=== PATIENT | male | born 1955 | race Caucasian/White ===

== ENCOUNTER 2021-04-01 14:04 | Observation (INO) ==
[2021-04-01 14:13] VITALS: BMI 28.2
--- NOTE | 2021-04-01 14:17 | DR.GENAD ---
HPI Time Seen Time Seen by Provider: 04/01/21 14:16 PCP Primary Care Physician: Complaint/Symptoms Chief Complaint:: PT ARRIVED PER [facility] FROM [facility]. EMS STATES PT'S SOCAIL WORKER CALLED TO HAVE PT TRANSPORTED TO ER HERE TO BE CHECKED OUT. PT'S IS ADMITTED TO HOSPITAL IN [place] & PT IS UNABLE TO TAKE CARE OF SELF. PT VOICES NO COMPLAINTS @ THIS TIME. COVID-19 Coronavirus risk:travel/contact w/high risk person: No Has patient experienced Coronavirus symptoms: No Source History Provided: Patient Mode of Arrival Mode of Arrival: EMS Timing Onset of Chief Complaint: 04/01/21 Came on: Suddenly Duration Duration: Constant Duration: Days PMH PMH Past Medical History: Yes Past Medical History: CVA and Diabetes Past Surgical History: Yes Surgical History: Other Family History History of Family Medical Conditions: Yes Family Medical History: Diabetes Mellitus and Cancer Travel Risk Coronavirus risk:travel/contact w/high risk person: No Has patient experienced Coronavirus symptoms: No Infectious screening Have you traveled outside the country in the last 6 months?: No Isolation: Standard ROS Review of Systems Constitutional: No Symptoms Reported and See HPI Eyes: No Symptoms Reported and See HPI ENTM: No Symptoms Reported and See HPI Respiratoy: No Symptoms Reported and See HPI Cardiovascular: No Symptoms Reported and See HPI Gastrointestinal/Abdominal: No Symptoms Reported and See HPI Genitourinary: No Symptoms Reported and See HPI Neurological: No Symptoms Reported and See HPI Musculoskeletal: No Symptoms Reported and See HPI Integumentary: No Symptoms Reported and See HPI Hematologic/Lymphatic: No Symptoms Reported and See HPI Endocrine: No Symptoms Reported and See HPI Psychiatric: No Symptoms Reported and See HPI All Other Systems: Reviewed and Negative PE Vital Signs Vitals: Temperature 98.2 F Pulse Rate [Left Radial] 75 Pulse Rate 76 Respiratory Rate 20 Blood Pressure [Left Arm] 167/81 Blood Pressure 135/90 O2 Sat by Pulse Oximetry 98 General Limitations: No Limitations General Appearance: Alert and In No Apparent Distress Head Head Exam: Normal Inspection Eyes Eye exam: Normal Appearance ENT ENT Exam: Normal Exam External Ear Exam: Normal External Inspection TM/Canal Exam: Bilateral: Normal Nose Exam: Normal Nose Exam Mouth Exam: Normal Inspection Throat Exam: Normal Inspection Neck Neck Exam: Normal Inspection Chest Chest Inspection: Normal Inspection Respiratory Respiratory Exam: Normal Lung Sounds Bilat Respiratory Exam: Bilateral: Clear to Auscultation Cardiovascular Cardiovascular Exam: Regular Rate and Normal Rhythm Abdominal Exam Abdominal Exam: Normal Inspection, Normal Bowel Sounds and Soft Extremities Extremities Exam: Normal Inspection Back Back Exam: Normal Inspection Neurologic Neurological Exam: Alert and Oriented X3 Psychiatric Psychiatric Exam: Normal Affect and Normal Mood Skin Skin Exam: Warm, Dry, Intact and Normal Color ROR Labs Reviewed Result Diagrams: 04/01/21 16:18 04/01/21 16:18 Laboratory: WBC 8.3 X10^3/uL (3.6-10.0) 04/01/21 16:18 RBC 4.55 X10^6/uL (4.7-6.0) L 04/01/21 16:18 Hgb 12.9 g/dL (13.5-18.0) L 04/01/21 16:18 Hct 37.9 % (42.0-54.0) L 04/01/21 16:18 MCV 83.3 fL (80.0-100.0) 04/01/21 16:18 MCH 28.3 pg (27.0-34.0) 04/01/21 16:18 MCHC 34.0 g/dL (33.0-35.0) 04/01/21 16:18 RDW 17.4 % (11.6-16.5) H 04/01/21 16:18 Plt Count 282 X10^3/uL (150.0-450.0) 04/01/21 16:18 MPV 7.9 fL (7.4-11.0) 04/01/21 16:18 Neut % (Auto) 68.7 % (42.0-75.0) 04/01/21 16:18 Lymph % (Auto) 17.9 % (21.0-51.0) L 04/01/21 16:18 [place] % (Auto) 9.5 % (0.0-13.0) 04/01/21 16:18 Eos % (Auto) 3.3 % (0.9-2.9) H 04/01/21 16:18 Baso % (Auto) 0.6 % (0.2-1.0) 04/01/21 16:18 Neut # (Auto) 5.7 x10^3/uL (2.2-4.8) H 04/01/21 16:18 Lymph # (Auto) 1.5 X10^3/uL (1.3-2.9) 04/01/21 16:18 [place]od # (Auto) 0.8 x10^3/uL (0.3-0.8) 04/01/21 16:18 Eos # (Auto) 0.3 x10^3/uL (0.0-0.2) H 04/01/21 16:18 Baso # (Auto) 0.1 X10^3/uL (0.0-0.1) 04/01/21 16:18 Absolute Nucleated RBC 0.0 /100WBC 04/01/21 16:18 Sodium 134 mmol/L (136-145) L 04/01/21 16:18 Corrected Sodium 137 mmol/L (136-145) 04/01/21 16:18 Potassium 4.3 mmol/L (3.5-5.1) 04/01/21 16:18 Chloride 99 mmol/L (98-107) 04/01/21 16:18 Carbon Dioxide 27.9 mmol/L (21-32) 04/01/21 16:18 BUN 16 mg/dL (7-18) 04/01/21 16:18 Creatinine 1.01 mg/dL (0.70-1.30) 04/01/21 16:18 Est GFR (MDRD) Af Amer > 60 (>60) 04/01/21 16:18 Est GFR (MDRD) Non-Af > 60 (>60) 04/01/21 16:18 Glucose 235 mg/dL (65-99) H 04/01/21 16:18 Calcium 9.4 mg/dL (8.5-10.1) 04/01/21 16:18 Corrected Calcium 10.1 mg/dL (8.5-10.1) 04/01/21 16:18 Total Bilirubin 0.70 mg/dL (0.2-1.0) 04/01/21 16:18 AST 15 Units/L (15-37) 04/01/21 16:18 ALT 11 Units/L (12-78) L 04/01/21 16:18 Alkaline Phosphatase 113 Units/L (46-116) 04/01/21 16:18 Total Protein 7.5 g/dL (6.4-8.2) 04/01/21 16:18 Albumin 3.1 g/dL (3.4-5.0) L 04/01/21 16:18 Globulin 4.4 g/dL (2.5-4.5) 04/01/21 16:18 Albumin/Globulin Ratio 0.7 Ratio (1.1-2.1) L 04/01/21 16:18 Specimen Type Catherized urine 04/01/21 19:23 Urine Color Yellow (YELLOW) 04/01/21 19:23 Urine Appearance Clear (CLEAR) 04/01/21 19: Urine pH 5.0 (5.0 - 8.0) 04/01/21 19: Ur Specific [place] 1.020 (1.000-1.030) 04/01/21 19: Urine Protein 2+ (NEGATIVE) 04/01/21 19: Urine Glucose (UA) 3+ (NEGATIVE) 04/01/21 19: Urine Ketones 2+ (NEGATIVE) 04/01/21 19: Urine Occult Blood 2+ (NEGATIVE) 04/01/21 19:23 Urine Nitrite Negative (NEGATIVE) 04/01/21 19:23 Urine Bilirubin Negative (NEGATIVE) 04/01/21 19:23 Urine Urobilinogen Normal (NORMAL) 04/01/21 19:23 Ur Leukocyte Esterase Negative (NEGATIVE) 04/01/21 19:23 Urine RBC 5-10 /HPF (0-3) A 04/01/21 19:23 Urine WBC 3-5 /HPF (0-5) 04/01/21 19:23 Ur Squamous Epith Cells Rare /HPF (NEGATIVE) 04/01/21 19:23 Urine Bacteria Trace /HPF (NEGATIVE) 04/01/21 19:23 Ur Culture Indicated? No/not indicated 04/01/21 19:23 SARS-CoV-2 (PCR) Negative (NEGATIVE) 04/01/21 19:23 Influenza Type A (PCR) Negative (NEGATIVE) 04/01/21 19:23 Influenza Type B (PCR) Negative (NEGATIVE) 04/01/21 19:23 RSV (PCR) Negative (NEGATIVE) 04/01/21 19:23 Opioid Opioid Risk Tool Age (David box if 16-45): No History of Preadolescent Sexual Abuse: No Total: 0 Total Score Risk Category: Low Risk Copyright: Som LOZA predicting aberrant behaviors
[2021-04-01 16:32] LABS: BASOPHILS # (AUTO) 0.1 X10^3/uL (0.0-0.1); BASOPHILS % (AUTO) 0.6 % (0.2-1.0); EOSINOPHILS # (AUTO) 0.3 x10^3/uL (0.0-0.2); EOSINOPHILS % (AUTO) 3.3 % (0.9-2.9); HEMATOCRIT 37.9 % (42.0-54.0); HEMOGLOBIN 12.9 g/dL (13.5-18.0); LYMPHOCYTES # (AUTO) 1.5 X10^3/uL (1.3-2.9); LYMPHOCYTES % (AUTO) 17.9 % (21.0-51.0); MEAN CORPUSCULAR HEMOGLOBIN 28.3 pg (27.0-34.0); MEAN CORPUSCULAR VOLUME 83.3 fL (80.0-100.0); MEAN PLATELET VOLUME 7.9 fL (7.4-11.0); MONOCYTES # (AUTO) 0.8 x10^3/uL (0.3-0.8); MONOCYTES % (AUTO) 9.5 % (0.0-13.0); NEUTROPHILS # (AUTO) 5.7 x10^3/uL (2.2-4.8); NEUTROPHILS % (AUTO) 68.7 % (42.0-75.0); PLATELET COUNT 282 X10^3/uL (150.0-450.0); RED BLOOD COUNT 4.55 X10^6/uL (4.7-6.0); RED CELL DISTRIBUTION WIDTH 17.4 % (11.6-16.5); WHITE BLOOD COUNT 8.3 X10^3/uL (3.6-10.0)
[2021-04-01 16:45] LABS: ALANINE AMINOTRANSFERASE 11 Units/L (12-78); ALBUMIN 3.1 g/dL (3.4-5.0); ALKALINE PHOSPHATASE 113 Units/L (46-116); ASPARTATE AMINO TRANSFERASE 15 Units/L (15-37); BLOOD UREA NITROGEN 16 mg/dL (7-18); CALCIUM 9.4 mg/dL (8.5-10.1); CARBON DIOXIDE 27.9 mmol/L (21-32); CHLORIDE 99 mmol/L (98-107); COR CA(FOR HYPOALB) 10.1 mg/dL (8.5-10.1); COR NA(FOR HYPERGLY) 137 mmol/L (136-145); CREATININE 1.01 mg/dL (0.70-1.30); SODIUM 134 mmol/L (136-145); TOTAL PROTEIN 7.5 g/dL (6.4-8.2); eGFR NON BLACK RACES > 60 (>60)
[2021-04-01 20:03] LABS: BILIRUBIN,URINE NEGATIVE (NEGATIVE); BLOOD/HEMOGLOBIN,URINE 2+ (NEGATIVE); GLUCOSE, URINE 3+ (NEGATIVE); KETONES,URINE 2+ (NEGATIVE); LEUKOCYTE ESTERASE ,URINE NEGATIVE (NEGATIVE); NITRITES,URINE NEGATIVE (NEGATIVE); PROTEIN,URINE 2+ (NEGATIVE); UROBILINOGEN,URINE NORMAL (NORMAL)
[2021-04-01 20:14] LABS: APPEARANCE,URINE CLEAR (CLEAR); COLOR,URINE YELLOW (YELLOW)
[2021-04-01 20:15] LABS: BACTERIA,URINE TRACE /HPF (NEGATIVE); SQUAMOUS EPITHELIAL CELL,UR RARE /HPF (NEGATIVE)
[2021-04-02] MEDS ORDERED: VISTARIL PO PRN (01:53)
[2021-04-02] MEDS ORDERED: NS 1000 ML 1,000 ML ONE (02:08)
[2021-04-02] MEDS: NS 1000 ML 1,000 ML IV SCH ×2 (02:25→15:31)
[2021-04-02] MEDS ORDERED: CATAPRES TAB 0.1 MG PO ONE (02:33)
[2021-04-02] MEDS: HumuLIN R SC PRN ×3 (05:52→17:35)
[2021-04-02 06:14] LABS: BASOPHILS % (AUTO) 0.6 % (0.2-1.0); EOSINOPHILS # (AUTO) 0.2 x10^3/uL (0.0-0.2); EOSINOPHILS % (AUTO) 3.6 % (0.9-2.9); HEMATOCRIT 36.4 % (42.0-54.0); HEMOGLOBIN 12.5 g/dL (13.5-18.0); LYMPHOCYTES # (AUTO) 1.4 X10^3/uL (1.3-2.9); LYMPHOCYTES % (AUTO) 20.3 % (21.0-51.0); MEAN CORPUSCULAR HEMOGLOBIN 28.2 pg (27.0-34.0); MEAN CORPUSCULAR HGB CONC 34.2 g/dL (33.0-35.0); MEAN CORPUSCULAR VOLUME 82.4 fL (80.0-100.0); MEAN PLATELET VOLUME 8.5 fL (7.4-11.0); MONOCYTES # (AUTO) 0.7 x10^3/uL (0.3-0.8); MONOCYTES % (AUTO) 10.8 % (0.0-13.0); NEUTROPHILS # (AUTO) 4.4 x10^3/uL (2.2-4.8); NEUTROPHILS % (AUTO) 64.7 % (42.0-75.0); PLATELET COUNT 304 X10^3/uL (150.0-450.0); RED BLOOD COUNT 4.42 X10^6/uL (4.7-6.0); RED CELL DISTRIBUTION WIDTH 17.1 % (11.6-16.5); WHITE BLOOD COUNT 6.8 X10^3/uL (3.6-10.0)
[2021-04-02 06:31] LABS: ALANINE AMINOTRANSFERASE 12 Units/L (12-78); ALKALINE PHOSPHATASE 117 Units/L (46-116); ASPARTATE AMINO TRANSFERASE 15 Units/L (15-37); BLOOD UREA NITROGEN 12 mg/dL (7-18); CALCIUM 9.3 mg/dL (8.5-10.1); CARBON DIOXIDE 26.5 mmol/L (21-32); CHLORIDE 98 mmol/L (98-107); COR CA(FOR HYPOALB) 10.1 mg/dL (8.5-10.1); COR NA(FOR HYPERGLY) 140 mmol/L (136-145); SODIUM 136 mmol/L (136-145); TOTAL PROTEIN 7.3 g/dL (6.4-8.2); eGFR NON BLACK RACES > 60 (>60)
[2021-04-02] MEDS: CATAPRES TAB 0.1 MG PO SCH ×2 (09:28→21:45)
--- NOTE | 2021-04-02 09:46 | DR.H&P ---
H&P History & Physical for Day of: H&P Date: 04/02/21 Chief Complaint Chief Complaint: Dehydration Generalized weakness Allergies Allergies Allergy/AdvReac Type Severity Reaction Status Date / Time No Known Drug Allergies Allergy Verified 04/01/21 14:13 History of Present Illness History of Present Illness: Pt is a 65 year old male past medical history of CVA(Right hemiparesis), Legally blind, HTN, DMT2, Skin cancer, presenting after EMS was called by [facility]. Appears patient's who is his primary legal financial specialist is at a hospital, possibly [place], with a heart condition. Pt has been alone for the past 3-4 days without any oral intake. Labs/imaging: Wbc 6.8, Hgb 12.5, Plt 304, Na 136, K 3.8, Creatinine 0.90, Glucose 246, UA negative, COVID-19 negative. Will admit patient for dehydration. Start on diabetic diet, IVF NS@80ml/h, SSI, Clonidine 0.1mg BID, Hydroxyzine 25mg qhs prn, Lovenox 40mg for DVT ppx. Will get medication list from pharmacy and restart home medications when available. Discussed with nurse outreach case manager to determine patient's home situation and status of . Will continue to monitor and follow up labs in the morning. Past Medical History Past Medical History: CVA, Diabetes and Hypertension Past Surgical History Surgical History: Other Family History Family Medical History: Diabetes Mellitus and Cancer Social History Does patient currently use any type of tobacco product: No Have you used tobacco products in the last 12 months: No Type of Tobacco Use: None Alcohol Use: None Drug Use: None Medications Home Medications: No Known Drug Allergies Allergy (Verified 04/01/21 14:13) Labs Result Diagrams: 04/02/21 05:25 04/02/21 05:25 Labs: Laboratory WBC 6.8 X10^3/uL (3.6-10.0) 04/02/21 05:25 RBC 4.42 X10^6/uL (4.7-6.0) L 04/02/21 05:25 Hgb 12.5 g/dL (13.5-18.0) L 04/02/21 05:25 Hct 36.4 % (42.0-54.0) L 04/02/21 05:25 MCV 82.4 fL (80.0-100.0) 04/02/21 05:25 MCH 28.2 pg (27.0-34.0) 04/02/21 05:25 MCHC 34.2 g/dL (33.0-35.0) 04/02/21 05:25 RDW 17.1 % (11.6-16.5) H 04/02/21 05:25 Plt Count 304 X10^3/uL (150.0-450.0) 04/02/21 05:25 MPV 8.5 fL (7.4-11.0) 04/02/21 05:25 Neut % (Auto) 64.7 % (42.0-75.0) 04/02/21 05:25 Lymph % (Auto) 20.3 % (21.0-51.0) L 04/02/21 05:25 [place] % (Auto) 10.8 % (0.0-13.0) 04/02/21 05:25 Eos % (Auto) 3.6 % (0.9-2.9) H 04/02/21 05:25 Baso % (Auto) 0.6 % (0.2-1.0) 04/02/21 05:25 Neut # (Auto) 4.4 x10^3/uL (2.2-4.8) 04/02/21 05:25 Lymph # (Auto) 1.4 X10^3/uL (1.3-2.9) 04/02/21 05:25 [place] # (Auto) 0.7 x10^3/uL (0.3-0.8) 04/02/21 05:25 Eos # (Auto) 0.2 x10^3/uL (0.0-0.2) 04/02/21 05:25 Baso # (Auto) 0.0 X10^3/uL (0.0-0.1) 04/02/21 05:25 Absolute Nucleated RBC 0.0 /100WBC 04/02/21 05:25 Sodium 136 mmol/L (136-145) 04/02/21 05:25 Corrected Sodium 140 mmol/L (136-145) 04/02/21 05:25 Potassium 3.8 mmol/L (3.5-5.1) 04/02/21 05:25 Chloride 98 mmol/L (98-107) 04/02/21 05:25 Carbon Dioxide 26.5 mmol/L (21-32) 04/02/21 05:25 BUN 12 mg/dL (7-18) 04/02/21 05:25 Creatinine 0.90 mg/dL (0.70-1.30) 04/02/21 05:25 Est GFR (MDRD) Af Amer > 60 (>60) 04/02/21 05:25 Est GFR (MDRD) Non-Af > 60 (>60) 04/02/21 05:25 Glucose 246 mg/dL (65-99) H 04/02/21 05:25 POC Glucose (mg/dL) 233 mg/dL (65-99) H 04/02/21 05:09 Calcium 9.3 mg/dL (8.5-10.1) 04/02/21 05:25 Corrected Calcium 10.1 mg/dL (8.5-10.1) 04/02/21 05:25 Total Bilirubin 0.70 mg/dL (0.2-1.0) 04/02/21 05:25 AST 15 Units/L (15-37) 04/02/21 05:25 ALT 12 Units/L (12-78) 04/02/21 05:25 Alkaline Phosphatase 117 Units/L (46-116) H 04/02/21 05:25 Total Protein 7.3 g/dL (6.4-8.2) 04/02/21 05:25 Albumin 3.0 g/dL (3.4-5.0) L 04/02/21 05:25 Globulin 4.3 g/dL (2.5-4.5) 04/02/21 05:25 Albumin/Globulin Ratio 0.7 Ratio (1.1-2.1) L 04/02/21 05:25 Specimen Type Catherized urine 04/01/21 19:23 Urine Color Yellow (YELLOW) 04/01/21 19:23 Urine Appearance Clear (CLEAR) 04/01/21 19:23 Urine pH 5.0 (5.0 - 8.0) 04/01/21 19:23 Ur Specific [place] 1.020 (1.000-1.030) 04/01/21 19:23 Urine Protein 2+ (NEGATIVE) 04/01/21 19:23 Urine Glucose (UA) 3+ (NEGATIVE) 04/01/21 19:23 Urine Ketones 2+ (NEGATIVE) 04/01/21 19:23 Urine Occult Blood 2+ (NEGATIVE) 04/01/21 19:23 Urine Nitrite Negative (NEGATIVE) 04/01/21 19:23 Urine Bilirubin Negative (NEGATIVE) 04/01/21 19:23 Urine Urobilinogen Normal (NORMAL) 04/01/21 19:23 Ur Leukocyte Esterase Negative (NEGATIVE) 04/01/21 19:23 Urine RBC 5-10 /HPF (0-3) A 04/01/21 19:23 Urine WBC 3-5 /HPF (0-5) 04/01/21 19:23 Ur Squamous Epith Cells Rare /HPF (NEGATIVE) 04/01/21 19:23 Urine Bacteria Trace /HPF (NEGATIVE) 04/01/21 19:23 Ur Culture Indicated? No/not indicated 04/01/21 19:23 SARS-CoV-2 (PCR) Negative (NEGATIVE) 04/01/21 19:23 Influenza Type A (PCR) Negative (NEGATIVE) 04/01/21 19:23 Influenza Type B (PCR) Negative (NEGATIVE) 04/01/21 19:23 RSV (PCR) Negative (NEGATIVE) 04/01/21 19:23 Review of Systems Constitutional: Weakness; denies Fever and Chills Eyes: Other (Blind) ENT: No Symptoms Reported Respiratory: No Symptoms Reported Cardiovascular: No Symptoms Reported Gastrointestinal: No Symptoms Reported Genitourinary: No Symptoms Reported Musculoskeletal: No Symptoms Reported Skin: Other (Right amish area large circumferencial area of cancer treatment) Neurological: Weakness (RUE/RLE ) Physical Exam Vital Signs: Temperature 97.1 F Pulse Rate [Left Radial] 71 Pulse Rate 76 Respiratory Rate 18 Blood Pressure [Left Arm] 149/90 Blood Pressure 135/90 O2 Sat by Pulse Oximetry 98 Oriented: Normal Eyes: Other (Blind) Ear: Normal Nose: Normal Throat: Normal Respiratory: Clear Throughout Cardiovascular: Normal : Normal Auscultation: Bowel Sounds: Normal Palpation: Normal Tenderness: Normal Skin: Decreased Turgur and Other (right amish skin treatment area) Musculoskeletal: Motor Deficit (Right hemiparesis(RUE/RLE)) Psychiatric: Normal Mood Description: Calm and Appropriate Affect: Normal Speech Pattern: Clear and Appropriate Assessment/Plan (1) Dehydration: Status: Acute (2) Generalized weakness: Status: Acute Review H&P Reviewed: Yes Patient was examined?: Yes
[2021-04-03] MEDS: NS 1000 ML 1,000 ML IV SCH ×2 (03:57→16:45)
[2021-04-03 06:18] LABS: BLOOD UREA NITROGEN 9 mg/dL (7-18); CALCIUM 9.1 mg/dL (8.5-10.1); CARBON DIOXIDE 27.7 mmol/L (21-32); CHLORIDE 101 mmol/L (98-107); COR NA(FOR HYPERGLY) 141 mmol/L (136-145); CREATININE 0.91 mg/dL (0.70-1.30); SODIUM 138 mmol/L (136-145); eGFR NON BLACK RACES > 60 (>60)
[2021-04-03 06:29] LABS: BASOPHILS # (AUTO) 0.1 X10^3/uL (0.0-0.1); BASOPHILS % (AUTO) 0.9 % (0.2-1.0); EOSINOPHILS # (AUTO) 0.2 x10^3/uL (0.0-0.2); EOSINOPHILS % (AUTO) 3.6 % (0.9-2.9); HEMATOCRIT 34.3 % (42.0-54.0); HEMOGLOBIN 11.9 g/dL (13.5-18.0); LYMPHOCYTES # (AUTO) 1.3 X10^3/uL (1.3-2.9); LYMPHOCYTES % (AUTO) 21.7 % (21.0-51.0); MEAN CORPUSCULAR HEMOGLOBIN 28.6 pg (27.0-34.0); MEAN CORPUSCULAR HGB CONC 34.7 g/dL (33.0-35.0); MEAN CORPUSCULAR VOLUME 82.5 fL (80.0-100.0); MEAN PLATELET VOLUME 8.5 fL (7.4-11.0); MONOCYTES # (AUTO) 0.6 x10^3/uL (0.3-0.8); MONOCYTES % (AUTO) 10.4 % (0.0-13.0); NEUTROPHILS # (AUTO) 3.9 x10^3/uL (2.2-4.8); NEUTROPHILS % (AUTO) 63.4 % (42.0-75.0); PLATELET COUNT 268 X10^3/uL (150.0-450.0); RED BLOOD COUNT 4.16 X10^6/uL (4.7-6.0); RED CELL DISTRIBUTION WIDTH 17.1 % (11.6-16.5); WHITE BLOOD COUNT 6.1 X10^3/uL (3.6-10.0)
[2021-04-03] MEDS: HumuLIN R SC PRN ×4 (06:30→21:28)
[2021-04-03] MEDS: CATAPRES TAB 0.1 MG PO SCH ×2 (10:11→21:40)
[2021-04-03] MEDS: LOVENOX INJ 40 MG SYR SC SCH (10:11)
--- NOTE | 2021-04-03 11:33 | PCM.PROG ---
Progress Note Progress Note for Day of Date of Exam: 04/03/21 Subjective Subjective: Pt is a 65 year old male past medical history of CVA(Right hemiparesis), Legally blind, HTN, DMT2, Skin cancer, admitted for dehydration and generalized weakness. This morning patient reports feeling a little better, he still remains weak. Labs/imaging: Wbc 6.1, Hgb 11.9, Plt 268, Na 138, K 3.4, Creatinine 0.91, Glucose 212. CXR: Mild cardiomegaly without congestive heart failure. Lungs hypoinflated but clear. Pt is currently on diabetic diet(pureed), IVF NS@80ml/h, SSI, Clonidine 0.1mg BID, Hydroxyzine 25mg qhs prn, Lovenox 40mg for DVT ppx. Will decrease IVF to KVO. PT recommends SNF for rehab. Discussed with business case analyst to arrange disposition. Otherwise continue with current mony tment plan. Will continue to monitor and follow up labs in the morning. Past Medical Family Social History Past Med/Fam/Surg Hx: No changes since H&P Allergies: Allergies No Known Drug Allergies Allergy (Verified 04/01/21 14:13) Review of Systems ROS: No change since H&P Vital Signs and I&O's Vital Signs: Temperature 98.2 F Pulse Rate [Left Radial] 75 Pulse Rate 76 Respiratory Rate 18 Blood Pressure [Left Arm] 164/94 Blood Pressure 135/90 O2 Sat by Pulse Oximetry 93 Intake and Output: Intake & Output 03/31/21 04/01/21 04/02/21 04/03/21 23:59 23:59 23:59 23:59 Intake Total 1016 / 1016 240 / 240 Output Total 225 / 225 Balance 1016 / 1016 Physical Exam Oriented: Normal Eyes: Other (Blind) Ear: Normal Nose: Normal Throat: Normal Respiratory: Normal Cardiovascular: Normal : Normal Auscultation: Bowel Sounds: Normal Tenderness: Normal Skin: Decreased Turgur and Other (right holiness skin treatment area) Musculoskeletal: Motor Deficit (Right hemiparesis(RUE/RLE)) Psychiatric: Normal Mood Description: Calm and Appropriate Affect: Normal Speech Pattern: Clear Laboratory and Diagnostics Result Diagrams: 04/04/21 05:48 04/04/21 05:48 Labs: Laboratory WBC 6.1 X10^3/uL (3.6-10.0) 04/03/21 04:25 RBC 4.16 X10^6/uL (4.7-6.0) L 04/03/21 04:25 Hgb 11.9 g/dL (13.5-18.0) L 04/03/21 04:25 Hct 34.3 % (42.0-54.0) L 04/03/21 04:25 MCV 82.5 fL (80.0-100.0) 04/03/21 04:25 MCH 28.6 pg (27.0-34.0) 04/03/21 04:25 MCHC 34.7 g/dL (33.0-35.0) 04/03/21 04:25 RDW 17.1 % (11.6-16.5) H 04/03/21 04:25 Plt Count 268 X10^3/uL (150.0-450.0) 04/03/21 04:25 MPV 8.5 fL (7.4-11.0) 04/03/21 04:25 Neut % (Auto) 63.4 % (42.0-75.0) 04/03/21 04:25 Lymph % (Auto) 21.7 % (21.0-51.0) 04/03/21 04:25 [place] % (Auto) 10.4 % (0.0-13.0) 04/03/21 04:25 Eos % (Auto) 3.6 % (0.9-2.9) H 04/03/21 04:25 Baso % (Auto) 0.9 % (0.2-1.0) 04/03/21 04:25 Neut # (Auto) 3.9 x10^3/uL (2.2-4.8) 04/03/21 04:25 Lymph # (Auto) 1.3 X10^3/uL (1.3-2.9) 04/03/21 04:25 [place] # (Auto) 0.6 x10^3/uL (0.3-0.8) 04/03/21 04:25 Eos # (Auto) 0.2 x10^3/uL (0.0-0.2) 04/03/21 04:25 Baso # (Auto) 0.1 X10^3/uL (0.0-0.1) 04/03/21 04:25 Absolute Nucleated RBC 0.0 /100WBC 04/03/21 04:25 Sodium 138 mmol/L (136-145) 04/03/21 04:25 Corrected Sodium 141 mmol/L (136-145) 04/03/21 04:25 Potassium 3.4 mmol/L (3.5-5.1) L 04/03/21 04:25 Chloride 101 mmol/L (98-107) 04/03/21 04:25 Carbon Dioxide 27.7 mmol/L (21-32) 04/03/21 04:25 BUN 9 mg/dL (7-18) 04/03/21 04:25 Creatinine 0.91 mg/dL (0.70-1.30) 04/03/21 04:25 Est GFR (MDRD) Af Amer > 60 (>60) 04/03/21 04:25 Est GFR (MDRD) Non-Af > 60 (>60) 04/03/21 04:25 Glucose 212 mg/dL (65-99) H 04/03/21 04:25 POC Glucose (mg/dL) 231 mg/dL (65-99) H 04/03/21 06:27 Calcium 9.1 mg/dL (8.5-10.1) 04/03/21 04:25 Corrected Calcium 10.1 mg/dL (8.5-10.1) 04/02/21 05:25 Total Bilirubin 0.70 mg/dL (0.2-1.0) 04/02/21 05:25 AST 15 Units/L (15-37) 04/02/21 05:25 ALT 12 Units/L (12-78) 04/02/21 05:25 Alkaline Phosphatase 117 Units/L (46-116) H 04/02/21 05:25 Total Protein 7.3 g/dL (6.4-8.2) 04/02/21 05:25 Albumin 3.0 g/dL (3.4-5.0) L 04/02/21 05:25 Globulin 4.3 g/dL (2.5-4.5) 04/02/21 05:25 Albumin/Globulin Ratio 0.7 Ratio (1.1-2.1) L 04/02/21 05:25 Specimen Type Catherized urine 04/01/21 19:23 Urine Color Yellow (YELLOW) 04/01/21 19: Urine Appearance Clear (CLEAR) 04/01/21 19: Urine pH 5.0 (5.0 - 8.0) 04/01/21 19: Ur Specific [place] 1.020 (1.000-1.030) 04/01/21 19: Urine Protein 2+ (NEGATIVE) 04/01/21 19: Urine Glucose (UA) 3+ (NEGATIVE) 04/01/21 19:23 Urine Ketones 2+ (NEGATIVE) 04/01/21 19: Urine Occult Blood 2+ (NEGATIVE) 04/01/21 19: Urine Nitrite Negative (NEGATIVE) 04/01/21 19: Urine Bilirubin Negative (NEGATIVE) 04/01/21 19:23 Urine Urobilinogen Normal (NORMAL) 04/01/21 19:23 Ur Leukocyte Esterase Negative (NEGATIVE) 04/01/21 19: Urine RBC 5-10 /HPF (0-3) A 04/01/21 19:23 Urine WBC 3-5 /HPF (0-5) 04/01/21 19:23 Ur Squamous Epith Cells Rare /HPF (NEGATIVE) 04/01/21 19:23 Urine Bacteria Trace /HPF (NEGATIVE) 04/01/21 19:23 Ur Culture Indicated? No/not indicated 04/01/21 19:23 SARS-CoV-2 (PCR) Negative (NEGATIVE) 04/01/21 19:23 Influenza Type A (PCR) Negative (NEGATIVE) 04/01/21 19:23 Influenza Type B (PCR) Negative (NEGATIVE) 04/01/21 19:23 RSV (PCR) Negative (NEGATIVE) 04/01/21 19:23 Plan (1) Dehydration: Status: Acute (2) Generalized weakness: Status: Acute
--- NOTE | 2021-04-03 14:20 | RAD ---
HISTORYAdmission for rehabSTUDYChest AP portCOMPARISONNoneFINDINGSThe heart is enlarged. No congestive heart failure is noted. No acute alveolar infiltrates or pleural effusions are identified. Hypo inflation is present. No pleural effusions are identified. Bony thorax is unremarkable.IMPRESSIONMild cardiomegaly without congestive heart failureLungs hypoinflated but clearElectronically signed by: TRACE LEIVA (Apr 03, 2021 14:18:10)
[2021-04-04] MEDS: NS 1000 ML 1,000 ML IV SCH (05:40)
[2021-04-04] MEDS: HumuLIN R SC PRN ×2 (05:52→13:32)
[2021-04-04 06:55] LABS: BASOPHILS # (AUTO) 0.1 X10^3/uL (0.0-0.1); BASOPHILS % (AUTO) 0.4 % (0.2-1.0); EOSINOPHILS # (AUTO) 0.1 x10^3/uL (0.0-0.2); EOSINOPHILS % (AUTO) 0.7 % (0.9-2.9); HEMATOCRIT 32.5 % (42.0-54.0); HEMOGLOBIN 11.2 g/dL (13.5-18.0); LYMPHOCYTES # (AUTO) 1.2 X10^3/uL (1.3-2.9); LYMPHOCYTES % (AUTO) 8.7 % (21.0-51.0); MEAN CORPUSCULAR HEMOGLOBIN 28.2 pg (27.0-34.0); MEAN CORPUSCULAR HGB CONC 34.4 g/dL (33.0-35.0); MEAN PLATELET VOLUME 8.5 fL (7.4-11.0); MONOCYTES # (AUTO) 1.3 x10^3/uL (0.3-0.8); MONOCYTES % (AUTO) 9.7 % (0.0-13.0); NEUTROPHILS # (AUTO) 10.8 x10^3/uL (2.2-4.8); NEUTROPHILS % (AUTO) 80.5 % (42.0-75.0); PLATELET COUNT 270 X10^3/uL (150.0-450.0); RED BLOOD COUNT 3.97 X10^6/uL (4.7-6.0); RED CELL DISTRIBUTION WIDTH 17.4 % (11.6-16.5); WHITE BLOOD COUNT 13.4 X10^3/uL (3.6-10.0)
[2021-04-04 06:59] LABS: BLOOD UREA NITROGEN 9 mg/dL (7-18); CALCIUM 8.8 mg/dL (8.5-10.1); CARBON DIOXIDE 26.3 mmol/L (21-32); CHLORIDE 100 mmol/L (98-107); COR NA(FOR HYPERGLY) 139 mmol/L (136-145); CREATININE 0.98 mg/dL (0.70-1.30); SODIUM 135 mmol/L (136-145); eGFR NON BLACK RACES > 60 (>60)
[2021-04-04] MEDS ORDERED: ROCEPHIN VIAL 1 GRAM 1 G in NS 100 ML IV + SPIKE MINIBAG* 100 ML IV ONE (08:34)
[2021-04-04] MEDS: CATAPRES TAB 0.1 MG PO SCH (10:07)
[2021-04-04] MEDS: LOVENOX INJ 40 MG SYR SC SCH (10:08)
--- NOTE | 2021-04-04 11:44 | W.DIS.FURT ---
Summary of Discharge Admission Diagnosis Vital Signs: Vital Signs (72 hours) 04/01/21 14:07 04/01/21 22:06 04/02/21 01:07 Temperature 98.2 F Pulse Rate 76 Pulse Rate [Left Radial] 75 Respiratory Rate 17 20 Blood Pressure 135/90 Blood Pressure [Left Arm] 167/81 182/89 O2 Sat by Pulse Oximetry 98 98 04/02/21 02:15 04/02/21 04:00 04/02/21 08:00 Temperature 98.3 F 98.9 F 97.1 F L Pulse Rate Pulse Rate [Left Radial] 83 64 71 Respiratory Rate 19 20 18 Blood Pressure Blood Pressure [Left Arm] 182/87 182/80 149/90 O2 Sat by Pulse Oximetry 94 L 97 98 04/02/21 12:00 04/02/21 16:00 04/02/21 20:00 Temperature 98.2 F 98.0 F 97.6 F Pulse Rate Pulse Rate [Left Radial] 75 61 84 Respiratory Rate 20 18 18 Blood Pressure Blood Pressure [Left Arm] 114/71 131/69 162/78 O2 Sat by Pulse Oximetry 98 98 96 04/03/21 00:00 04/03/21 04:00 04/03/21 08:00 Temperature 97.8 F 98.2 F 97.9 F Pulse Rate Pulse Rate [Left Radial] 90 75 71 Respiratory Rate 20 18 20 Blood Pressure Blood Pressure [Left Arm] 150/78 164/94 166/98 O2 Sat by Pulse Oximetry 91 L 93 L 97 04/03/21 12:00 04/03/21 16:00 04/03/21 19:52 Temperature 98.0 F 97.7 F 98.7 F Pulse Rate Pulse Rate [Left Radial] 79 72 90 Respiratory Rate 20 20 18 Blood Pressure Blood Pressure [Left Arm] 164/98 145/83 114/77 O2 Sat by Pulse Oximetry 97 96 92 L 04/04/21 00:00 04/04/21 04:00 04/04/21 08:00 Temperature 98.7 F 98.6 F 99.1 F Pulse Rate Pulse Rate [Left Radial] 85 95 H 102 H Respiratory Rate 18 18 18 Blood Pressure Blood Pressure [Left Arm] 129/73 130/59 137/83 O2 Sat by Pulse Oximetry 95 95 94 L Labs: Laboratory Last Values WBC 13.4 X10^3/uL (3.6-10.0) H 04/04/21 05:48 RBC 3.97 X10^6/uL (4.7-6.0) L 04/04/21 05:48 Hgb 11.2 g/dL (13.5-18.0) L 04/04/21 05:48 Hct 32.5 % (42.0-54.0) L 04/04/21 05:48 MCV 82.0 fL (80.0-100.0) 04/04/21 05:48 MCH 28.2 pg (27.0-34.0) 04/04/21 05:48 MCHC 34.4 g/dL (33.0-35.0) 04/04/21 05:48 RDW 17.4 % (11.6-16.5) H 04/04/21 05:48 Plt Count 270 X10^3/uL (150.0-450.0) 04/04/21 05:48 MPV 8.5 fL (7.4-11.0) 04/04/21 05:48 Neut % (Auto) 80.5 % (42.0-75.0) H 04/04/21 05:48 Lymph % (Auto) 8.7 % (21.0-51.0) L 04/04/21 05:48 [place] % (Auto) 9.7 % (0.0-13.0) 04/04/21 05:48 Eos % (Auto) 0.7 % (0.9-2.9) L 04/04/21 05:48 Baso % (Auto) 0.4 % (0.2-1.0) 04/04/21 05:48 Neut # (Auto) 10.8 x10^3/uL (2.2-4.8) H 04/04/21 05:48 Lymph # (Auto) 1.2 X10^3/uL (1.3-2.9) L 04/04/21 05:48 [place] # (Auto) 1.3 x10^3/uL (0.3-0.8) H 04/04/21 05:48 Eos # (Auto) 0.1 x10^3/uL (0.0-0.2) 04/04/21 05:48 Baso # (Auto) 0.1 X10^3/uL (0.0-0.1) 04/04/21 05:48 Absolute Nucleated RBC 0.0 /100WBC 04/04/21 05:48 Sodium 135 mmol/L (136-145) L 04/04/21 05:48 Corrected Sodium 139 mmol/L (136-145) 04/04/21 05:48 Potassium 3.6 mmol/L (3.5-5.1) 04/04/21 05:48 Chloride 100 mmol/L (98-107) 04/04/21 05:48 Carbon Dioxide 26.3 mmol/L (21-32) 04/04/21 05:48 BUN 9 mg/dL (7-18) 04/04/21 05:48 Creatinine 0.98 mg/dL (0.70-1.30) 04/04/21 05:48 Est GFR (MDRD) Af Amer > 60 (>60) 04/04/21 05:48 Est GFR (MDRD) Non-Af > 60 (>60) 04/04/21 05:48 Glucose 283 mg/dL (65-99) H 04/04/21 05:48 POC Glucose (mg/dL) 275 mg/dL (65-99) H 04/04/21 05:15 Calcium 8.8 mg/dL (8.5-10.1) 04/04/21 05:48 Corrected Calcium 10.1 mg/dL (8.5-10.1) 04/02/21 05:25 Total Bilirubin 0.70 mg/dL (0.2-1.0) 04/02/21 05:25 AST 15 Units/L (15-37) 04/02/21 05:25 ALT 12 Units/L (12-78) 04/02/21 05:25 Alkaline Phosphatase 117 Units/L (46-116) H 04/02/21 05:25 Total Protein 7.3 g/dL (6.4-8.2) 04/02/21 05:25 Albumin 3.0 g/dL (3.4-5.0) L 04/02/21 05:25 Globulin 4.3 g/dL (2.5-4.5) 04/02/21 05:25 Albumin/Globulin Ratio 0.7 Ratio (1.1-2.1) L 04/02/21 05:25 Specimen Type Catherized urine 04/01/21 19: Urine Color Yellow (YELLOW) 04/01/21 19: Urine Appearance Clear (CLEAR) 04/01/21 19: Urine pH 5.0 (5.0 - 8.0) 04/01/21 19: Ur Specific [place] 1.020 (1.000-1.030) 04/01/21 19:23 Urine Protein 2+ (NEGATIVE) 04/01/21 19: Urine Glucose (UA) 3+ (NEGATIVE) 04/01/21 19: Urine Ketones 2+ (NEGATIVE) 04/01/21 19:23 Urine Occult Blood 2+ (NEGATIVE) 04/01/21 19: Urine Nitrite Negative (NEGATIVE) 04/01/21: Urine Bilirubin Negative (NEGATIVE) 04/01/21 19: Urine Urobilinogen Normal (NORMAL) 04/01/21 19:23 Ur Leukocyte Esterase Negative (NEGATIVE) 04/01/21 19:23 Urine RBC 5-10 /HPF (0-3) A 04/01/21 19:23 Urine WBC 3-5 /HPF (0-5) 04/01/21 19:23 Ur Squamous Epith Cells Rare /HPF (NEGATIVE) 04/01/21 19:23 Urine Bacteria Trace /HPF (NEGATIVE) 04/01/21 19:23 Ur Culture Indicated? No/not indicated 04/01/21 19:23 SARS-CoV-2 (PCR) Negative (NEGATIVE) 04/01/21 19:23 Influenza Type A (PCR) Negative (NEGATIVE) 04/01/21 19:23 Influenza Type B (PCR) Negative (NEGATIVE) 04/01/21 19:23 RSV (PCR) Negative (NEGATIVE) 04/01/21 19:23 Reason For Visit: DEHYDRATION, GENERALIZED WEAKNESS Discharge Diagnosis All Active Problems (Updated 04/02/21 @ 11:47 by Domo Das) Generalized weakness (Acute) Dehydration (Acute) Plan of Treatment: Continue with present treatment and follow up plan. Pt is to keep follow up appointment as instructed and take medications as ordered. Discharge Medications Discharge Medications: No Known Drug Allergies Allergy (Verified 04/01/21 14:13) CONTINUE taking the following medications oxycodone-acetaminophen 1 tab PO Q6H PRN 04/03/21 [History] Discharge Plan Discharge Plan Patient Disposition: [facility]FER [facility] Condition: Stable Health Concerns: Post Hospitalization: new medications and changes needed to prevent readmission or further decline. Pt educated and given instructions on all concerns. Care Plan Goals: Problem: Fluid Volume Deficit Goal: Maintain/Improved Adequate hydration. Instructions: Follow provided instructions. Follow up with primary physician as directed. Contact primary care physician or report to the closest Emergency Room if condition worsens. Plan of Treatment: Continue with present treatment and follow up plan. Pt is to keep follow up appointment as instructed and take medications as ordered. Prescriptions: No Action oxycodone-acetaminophen 10-325 mg tablet 1 tab PO Q6H PRN (Reason: Pain) RF: 0 Follow ups/Referrals Follow ups/Referrals: YINKA ROWLEY [Primary Care Provider] - 1 WEEK
[2021-04-04 16:34] VITALS: BP 131/65
== END 2021-04-04 15:55 ==
LOC: OBS 14:04 → ER 14:04 → OBS 04-02 02:02 → MED/SURG 04-02 17:37
PROVIDERS: ADMIT Family Medicine; ATTEND Family Medicine
DX: Z20.822 Contact with and (suspected) exposure to COVID-19; R53.1 Weakness; E86.0 Dehydration; I69.398 Other sequelae of cerebral infarction; I10 Essential (primary) hypertension; E11.65 Type 2 diabetes mellitus with hyperglycemia; H54.8 Legal blindness, as defined in USA